=== PATIENT | female | born 1990 | race Caucasian/White ===

== ENCOUNTER 2017-03-26 09:15 | Emergency (ER) | payer OTHER ==
[2017-03-26 10:13] LABS: HEMOGLOBIN 14.7 gm/dl (12.3-15.3); RED BLOOD COUNT 4.81 M/UL (4.00-5.10); WHITE BLOOD COUNT 7.9 K/UL (4.5-11.0)
[2017-03-26 10:29] LABS: BUN/CREATININE RATIO 14 (0-10)
== END 2017-03-26 12:15 | disposition left against medical advice (07) ==
LOC: ER1 09:15
PROVIDERS: Emergency Medicine
DX: R10.33 Periumbilical pain (principal)
CPT/HCPCS: 36415; 80053; 81001; 83690; 84703; 85025; 96360; 96361; 99284